=== PATIENT | male | born 1945 | race African-American/Black ===

== ENCOUNTER 2018-03-29 11:06 | Day surgery (SDC) | payer MEDICARE ==
[~2018-03-29] VITALS: Ht 182.9 cm; Wt 75.0 kg
--- NOTE | ~2018-03-29 | OP ---
PATIENT NAME: JASON MONTERO MEDICAL RECORD: [id number] :41 LOCATION:[facility] ADMISSION DATE: SURGEON: LUANNE BAXTER MD DATE OF OPERATION: 03/29/2018 PROCEDURE: Colonoscopy with biopsy and polypectomy. REFERRING PHYSICIAN: Fam Pabon MD PRIMARY CARE PHYSICIAN: Dr. Alba ([place], [place]) INDICATIONS: Mr. 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 He has a history of an elevated CEA level. His last colonoscopy on 12/13/2014 showed multiple colon polyps and mild pandiverticulosis and internal hemorrhoids. The polyps were tubular, adenomatous and hyperplastic in nature. He has had problems with diarrhea and weight loss until earlier this year when he was beginning to gain weight and his diarrhea is less pronounced. He does drink a pot and half of coffee a day. He presents for outpatient colonoscopy. PREMEDICATIONS: Total IV anesthesia (propofol 100 mg). INSTRUMENT: Olympus video colonoscope, pediatric. PROCEDURE AND FINDINGS: After receiving informed consent, Mr. Montero was placed in left lateral decubitus position and sedated as per anesthesia. After achieving an adequate level of sedation, digital rectal exam was performed that showed no external hemorrhoidal tags, fissures or fistulas, normal sphincter tone, no palpable rectal masses. Colonoscope was introduced per rectally and advanced to the cecum without difficulty. The cecum, IC valve, and appendiceal orifice were identified. Within the cecum adjacent to the appendiceal orifice was a small 0.3 cm size polyp removed with hot biopsy forcep technique. As the colonoscope was withdrawn, careful inspection was made of the campbell of the colon. Overall mucosa had normal vascular and fold pattern. Ascending colon biopsies were obtained to rule out microscopic colitis. There were diverticula seen scattered throughout the colon. Retroflexion in the rectum showed minimal internal hemorrhoids. Stool was collected during the procedure for study. Withdrawal time was 6 minutes. Mr. Montero tolerated the procedure well, no immediate complications. ASSESSMENT: 1. Small cecal polyp status post polypectomy. 2. Mild pandiverticulosis coli. 3. Mild internal hemorrhoids. 4. History of diarrhea and weight loss. 5. History of elevated CEA level. RECOMMENDATIONS: 1. Follow up histopathology. 2. Avoid aspirin, nonsteroidal anti-inflammatory drugs and MONTES-2 inhibitors for 14 days post polypectomy. 3. High fiber diet. 4. Surveillance colonoscopy in 3 years pending nature of polyp histopathology. TRANSINT:[id number] Voice Confirmation ID: [id number] DOCUMENT ID: [id number] OPERATIVE REPORT [id number] JASON MONTERO TERRI MD at 1832 CC: FAM PABON MD [id number] DICTATION DATE: 03/29/18 1440 PIPING SUPERVISOR: 03/29/18 1503 [facility] [place] 03/29/18 [facility] [address] [place] [address]
[~2018-03-29 11:06] MED LIST: ARICEPT5 MG; FLOMAX0.4 MG PO; HYDROCHLOROTHIA50 MG PO; K-DUR20 MEQ PO; KLONOPIN1 MG; KLOR-CON 88 MEQ; KLOR-CON20 MEQ/PKT; MEGACE400 MG/10 PO; PRAVACHOL40 MG; RAPAFLO; TESTOSTERON200 MG/ML IM; ZANTAC300 MG
[2018-03-29 11:30] LABS: HEMATOCRIT 39.4 % (42.0-54.0); HEMOGLOBIN 14.2 g/dL (13.5-17.5); MCH 31.2 pg (26.0-34.0); MCV 86.6 fL (80.0-100.0); MEAN PLATELET VOLUME 9.4 fL (7.4-10.4); RBC 4.55 10x6/uL (4.20-6.10); RDW 12.8 % (11.5-14.5); WBC 4.7 10x3/uL (4.8-10.8)
[2018-03-29] MEDS ORDERED: BREO ELLIPTA 11 EACH INH (11:59)
[2018-03-29] MEDS ORDERED: PROAIR HFA8.5 GM INH (11:59)
[2018-03-29 12:00] LABS: ANION GAP 14.2 mmol/L (8-16); CALCIUM 9.7 mg/dL (8.5-10.1); CARBON DIOXIDE 28.7 mmol/L (21.0-32.0); CREATININE - SERUM 1.5 mg/dL (0.6-1.3); POTASSIUM - SERUM 3.9 mmol/L (3.5-5.1)
[2018-03-29] MEDS ORDERED: PENTOXIFYLLINE400 MG PO (12:00)
[2018-03-29 12:09] VITALS: BP 127/75; Ht 182.9 cm; Wt 75.0 kg
== END 2018-03-29 15:59 | disposition home or self-care (01) ==
LOC: D.OPS 11:06
PROVIDERS: Anesthesiology
DX: K63.5 Polyp of colon (principal); K57.90 Diverticulosis of intestine, part unspecified, without perforation or abscess without bleeding